=== PATIENT | male | born 1955 | race African-American/Black ===

== ENCOUNTER → 2016-06-05 | Outpatient (CLI) | payer BC, OTHER | END | disposition home or self-care (01) | LOC: PCVCIMAG 13:56 | PROVIDERS: ATTEND Internal Medicine Cardiovascular Disease | DX: I70.213 Atherosclerosis of native arteries of extremities with intermittent claudication, bilateral legs (principal); E78.5 Hyperlipidemia, unspecified; I10 Essential (primary) hypertension; M79.605 Pain in left leg; M79.604 Pain in right leg | CPT/HCPCS: 93925 ==

== ENCOUNTER → 2017-05-24 | Outpatient (CLI) | payer OTHER | END | disposition home or self-care (01) | LOC: PCVCIMAG 13:01 | DX: I73.9 Peripheral vascular disease, unspecified (principal); I25.10 Atherosclerotic heart disease of native coronary artery without angina pectoris; R07.9 Chest pain, unspecified; R53.83 Other fatigue; E78.5 Hyperlipidemia, unspecified | CPT/HCPCS: 80061; 93325; 93351; 93880; 93925 ==